=== PATIENT | female | born 1960 | race Caucasian/White ===

== ENCOUNTER → 2021-01-07 | Outpatient (CLI) | payer MEDICARE, OTHER ==
[~2021-01-07] MED LIST: IBUPROFEN600 MG PO; POLYSPORIN OP3.5 GM TOP
== END ==
LOC: KOH-I 11:03
DX: M54.5 Low back pain (principal); M51.36 Other intervertebral disc degeneration, lumbar region; N20.0 Calculus of kidney
CPT/HCPCS: 72100

== ENCOUNTER → 2021-06-20 | Emergency (ER) | payer MEDICARE, OTHER ==
[2021-06-20 14:21] LABS: HEMOGLOBIN 14.7 gm/dl (12.3-15.3); RED BLOOD COUNT 4.95 M/UL (4.00-5.10)
[2021-06-20 15:53] LABS: BUN/CREATININE RATIO 8 (0-10)
== END | disposition home or self-care (01) ==
LOC: ER1 13:00
PROVIDERS: Physician Assistant
DX: M79.661 Pain in right lower leg (principal)
CPT/HCPCS: 80053; 85025; 93971; 99284

== ENCOUNTER → 2021-06-24 | Outpatient (CLI) | payer MEDICARE, OTHER | LOC: KOH-I 09:51 | DX: M25.561 Pain in right knee (principal); M25.571 Pain in right ankle and joints of right foot; M25.471 Effusion, right ankle; M17.11 Unilateral primary osteoarthritis, right knee | CPT/HCPCS: 73562; 73610 ==

== ENCOUNTER 2021-07-10 14:13 | Emergency (ER) | payer MEDICARE, OTHER ==
[2021-07-10 14:46] LABS: HEMOGLOBIN 14.7 gm/dl (12.3-15.3); RED BLOOD COUNT 5.35 M/UL (4.00-5.10); WHITE BLOOD COUNT 10.2 K/UL (4.5-11.0)
[2021-07-10 15:44] LABS: BUN/CREATININE RATIO 11 (0-10)
[2021-07-10] MEDS ORDERED: CEPHALEXIN500 M1 PO (20:04)
[2021-07-10] MEDS ORDERED: BACTROBAN OINT22 GM EXT (20:04)
[2021-07-10] MEDS ORDERED: TESSALON PERLE100 MG PO (21:06)
[2021-07-10] MEDS ORDERED: K-DUR TAB 10 M10 MEQ PO (21:06)
== END 2021-07-10 21:21 | disposition home or self-care (01) ==
LOC: ER1 14:13
DX: U07.1 COVID-19 (principal); J12.82 Pneumonia due to coronavirus disease 2019; E87.6 Hypokalemia
CPT/HCPCS: 71045; 80053; 82550; 82553; 82803; 83874; 84484; 85025; 85379; 93005; 94640; 94664; 99285; U0002

== ENCOUNTER → 2021-08-14 | Outpatient (CLI) | payer MEDICARE, OTHER ==
[~2021-08-14] MED LIST changes: +BACTROBAN OINT22 GM EXT; +CEPHALEXIN500 M1 PO; +K-DUR TAB 10 M10 MEQ PO; +TESSALON PERLE100 MG PO
== END ==
LOC: KOH-I 15:36
DX: R05.2 Subacute cough (principal)
CPT/HCPCS: 71046